=== PATIENT | male | born 1970 | race Caucasian/White ===

== ENCOUNTER 2016-05-15 14:56 | Emergency (ER) | payer SELFPAY | END 2016-05-15 19:33 | disposition critical access hospital (66) | LOC: ER 14:56 | DX: L03.116 Cellulitis of left lower limb (principal); E11.9 Type 2 diabetes mellitus without complications; F41.9 Anxiety disorder, unspecified; I10 Essential (primary) hypertension; F17.200 Nicotine dependence, unspecified, uncomplicated; Z90.89 Acquired absence of other organs; Z79.899 Other long term (current) drug therapy; Z79.82 Long term (current) use of aspirin; Z88.1 Allergy status to other antibiotic agents | CPT/HCPCS: 96365; 96375 ==

== ENCOUNTER 2016-05-15 14:56 | Observation (INO) | payer SELFPAY ==
[2016-05-17] MEDS ORDERED: OMEPRAZOLE20 MG PO (12:55)
[2016-05-17] MEDS ORDERED: ASPIR 8181 MG PO (12:56)
[2016-05-17] MEDS ORDERED: ZOLOFT50 MG PO (12:57)
[2016-05-17] MEDS ORDERED: ZYRTEC10 MG PO (12:59)
[2016-05-17] MEDS ORDERED: ACETAMINOPHEN325 MG PO (13:01)
[2016-05-17] MEDS ORDERED: ZESTRIL20 MG PO ×2 (13:02→13:03)
[2016-05-17] MEDS ORDERED: IBUPROFEN400 MG PO (13:03)
[2016-05-17] MEDS ORDERED: HYDROCHLOROTHIA25 MG PO (13:03)
[2016-05-17] MEDS ORDERED: PSEUDOEPHEDRINE30 MG PO (13:04)
[2016-05-17] MEDS ORDERED: GLUCOPHAGE500 MG PO (13:06)
[2016-05-17] MEDS ORDERED: PREDNISONE10 MG PO (13:07)
== END 2016-05-17 13:13 | disposition home or self-care (01) ==
LOC: ER 14:56 → MED 19:34
PROVIDERS: ADMIT Internal Medicine
DX: M12.872 Other specific arthropathies, not elsewhere classified, left ankle and foot (principal); Q66.89 Other specified congenital deformities of feet; E87.6 Hypokalemia; I10 Essential (primary) hypertension; E11.9 Type 2 diabetes mellitus without complications; K21.9 Gastro-esophageal reflux disease without esophagitis; Z88.1 Allergy status to other antibiotic agents; Z79.82 Long term (current) use of aspirin; Z79.899 Other long term (current) drug therapy; Z87.891 Personal history of nicotine dependence; Z90.49 Acquired absence of other specified parts of digestive tract; Z98.890 Other specified postprocedural states
CPT/HCPCS: 36415; 73718; 97161-GP; 97165; G0378; J1650; J1885